=== PATIENT | female | born 1995 | race African-American/Black ===

== ENCOUNTER 2018-12-31 20:28 | Emergency (ER) | payer MEDICARE ==
[~2018-12-31] VITALS: Ht 157.5 cm; Wt 94.1 kg
[2018-12-31] MEDS ORDERED: ACETAMINOPHEN WITH CODEINE 300/30MG TABLET PO ONE (22:00)
[2018-12-31] MEDS ORDERED: LIDOCAINE HCL/PF 1% 10 MG/ML 5ML VIAL IJ ONE (22:15)
[2018-12-31] MEDS ORDERED: BACITRACIN ZINC OINT UDPKT TOP ONE (22:15)
[2018-12-31] MEDS ORDERED: BACITRACIN 15GM TUBE TOP SCH (22:45)
[2018-12-31 23:16] VITALS: BP 149/101
== END 2018-12-31 23:20 | disposition home or self-care (01) ==
LOC: ER 20:28
DX: M54.89 Other dorsalgia (principal); S21.221 Laceration with foreign body of right back wall of thorax without penetration into thoracic cavity; Z18.10 Retained metal fragments, unspecified; X95.9XXS Assault by unspecified firearm discharge, sequela
CPT/HCPCS: 71045; 99284; J3490

== ENCOUNTER 2019-01-20 21:41 | Emergency (ER) | payer MEDICARE ==
[~2019-01-20] VITALS: Ht 157.5 cm; Wt 96.0 kg
[2019-01-20 21:50] VITALS: BP 136/90
== END 2019-01-21 00:26 | disposition left against medical advice (07) ==
LOC: ER 21:41
DX: Z53.21 Procedure and treatment not carried out due to patient leaving prior to being seen by health care provider (principal)

== ENCOUNTER 2019-03-26 18:53 | Emergency (ER) | payer MEDICARE ==
[~2019-03-26] VITALS: Ht 157.5 cm; Wt 89.0 kg
[2019-03-26 22:37] LABS: CLARITY URINE CLOUDY (CLEAR); COLOR URINE YELLOW (YELLOW); KETONES URINE NEGATIVE (NEGATIVE); LEUKOCYTE ESTERASE URINE 3+ (NEGATIVE); NITRITE URINE NEGATIVE (NEGATIVE); OCCULT BLOOD URINE 1+ (NEGATIVE); PROTEIN URINE TRACE (NEGATIVE); SPECIFIC GRAVITY URINE 1.016 (1.005-1.030); UROBILINOGEN URINE 0.2 E.U./dL (0.2-1.0)
[2019-03-26 23:28] VITALS: BP 138/74
== END 2019-03-26 23:29 | disposition home or self-care (01) ==
LOC: ER 18:53
DX: N39.0 Urinary tract infection, site not specified (principal); F12.10 Cannabis abuse, uncomplicated; J45.909 Unspecified asthma, uncomplicated
CPT/HCPCS: 81003; 81025; 87077; 87186; 99283

== ENCOUNTER 2022-11-08 07:33 | Emergency (ER) | payer MEDICAID, MEDICARE ==
[~2022-11-08] VITALS: Ht 170.2 cm; Wt 97.0 kg
[2022-11-08 07:34] VITALS: BP_DIAS 83; PULSE 93; RESP 17; TEMP 98.3; O2SAT 97
[2022-11-08 08:08] VITALS: BP_SYST 130
== END 2022-11-08 08:14 | disposition home or self-care (01) ==
LOC: ER 07:33
DX: S51.812D Laceration without foreign body of left forearm, subsequent encounter (principal); J45.909 Unspecified asthma, uncomplicated; F12.10 Cannabis abuse, uncomplicated; X58.XXXD Exposure to other specified factors, subsequent encounter
CPT/HCPCS: 99281; Z7610 ×2